=== PATIENT | male | born 1990 | race Asian ===

== ENCOUNTER 2020-01-07 01:11 | Emergency (ER) | payer BC ==
[~2020-01-07] VITALS: Ht 170.2 cm; Wt 68.0 kg
[2020-01-07 01:15] VITALS: Ht 170.2 cm; Wt 68.0 kg
[2020-01-07 02:12] LABS: BASOPHIL % 0.4 % (0-2); PLATELET COUNT 265 x10^3mcL (130-400); RED CELL DISTRIBUTION WIDTH 12.5 % (11.5-14.5)
[2020-01-07 02:20] LABS: CALCIUM 8.6 mg/dL (8.5-10.1); CARBON DIOXIDE 24.1 mmol/L (21-32); CHLORIDE SERUM 100 mmol/L (98-107); GFR1 > 60 mL/min; GLUCOSE SERUM 91 mg/dL (74-106); POTASSIUM SERUM 3.8 mmol/L (3.5-5.1); SODIUM SERUM 138 mmol/L (136-145)
[2020-01-07 02:26] LABS: ALBUMIN 4.3 g/dL (3.4-5.0); ALKALINE PHOSPHATASE 48 U/L (46-116); ALT/SGPT 29 U/L (16-63); AST/SGOT 27 U/L (15-37); BILIRUBIN TOTAL 0.69 mg/dL (0.20-1.00); TOTAL PROTEIN, SERUM 7.7 g/dL (6.4-8.2)
[2020-01-07 05:36] LABS: AMPHETAMINE QUAL UR NONE DETECTED (See below)
[2020-01-07 12:20] VITALS: BP 111/64
== END 2020-01-07 12:21 | disposition home or self-care (01) ==
LOC: ED 01:11
PROVIDERS: Emergency Medicine
DX: S51.812A Laceration without foreign body of left forearm, initial encounter (principal); F10.129 Alcohol abuse with intoxication, unspecified; X99.1XXA Assault by knife, initial encounter; Y93.89 Activity, other specified; Y92.89 Other specified places as the place of occurrence of the external cause; Y99.8 Other external cause status
CPT/HCPCS: 90715; G0480; J2001; J7030; U0003-CS